=== PATIENT | male | born 1970 | race Caucasian/White ===

== ENCOUNTER 2021-12-20 23:27 | Emergency (ER) | payer MEDICAID ==
[~2021-12-20] VITALS: Ht 185.4 cm; Wt 77.5 kg
[2021-12-21 00:49] LABS: BASOPHILS # (AUTO) 0.1 X10'3 (0-0.2); BASOPHILS % (AUTO) 0.8 % (0-1); EOSINOPHILS # (AUTO) 0.2 X10'3 (0-0.9); HEMATOCRIT 37.2 % (42.0-52.0); HEMOGLOBIN 12.8 g/dl (14.0-17.9); LYMPHOCYTES # (AUTO) 2.5 X10'3 (1.1-4.8); LYMPHOCYTES % (AUTO) 31.6 % (21-51); MEAN CORPUSCULAR HEMOGLOBIN 29.2 PG (27.0-31.0); MEAN CORPUSCULAR HGB CONC 34.5 g/dL (33.0-36.5); MEAN CORPUSCULAR VOLUME 84.6 FL (78-98); MEAN PLATELET VOLUME 6.8 FL (7.4-10.4); MONOCYTES # (AUTO) 0.6 X10'3 (0-0.9); MONOCYTES % (AUTO) 8.2 % (2-12); NEUTROPHILS # (AUTO) 4.4 X10'3 (1.8-7.7); NEUTROPHILS % (AUTO) 56.4 % (42-75); PLATELET COUNT 395 X10'3 (140-440); RED CELL DISTRIBUTION WIDTH 13.2 % (11.5-14.5); WHITE BLOOD COUNT 7.8 X10'3 (4.5-11.0)
[2021-12-21 01:01] LABS: ALANINE AMINOTRANSFERASE 25 U/L (12-78); ALBUMIN 3.4 G/DL (3.4-5.0); ALBUMIN/GLOBULIN RATIO 0.8 (1.1-1.5); ALKALINE PHOSPHATASE 90 IU/L (46-116); ANION GAP 5 (8-16); ASPARTATE AMINO TRANSFERASE 15 U/L (10-37); BILIRUBIN,TOTAL 0.2 MG/DL (0.1-1.0); BLOOD UREA NITROGEN 16 MG/DL (7-18); BUN/CREATININE RATIO 14.8 (5.4-32.0); CALCIUM 9.4 MG/DL (8.5-10.1); CHLORIDE 104 MMOL/L (99-107); CREATININE 1.08 MG/DL (0.60-1.10); GLUCOSE 87 MG/DL (70-104); POTASSIUM 4.3 MMOL/L (3.5-5.1); SODIUM 143 MMOL/L (135-145); TOTAL CARBON DIOXIDE 33.6 MMOL/L (24-32); TOTAL PROTEIN 7.8 G/DL (6.4-8.2); eGFR 73 ML/MIN
[2021-12-21] MEDS ORDERED: sulfamethoxazole/trimethoprim DS (800/160mg) tablet PO ONE (03:20)
[2021-12-21] MEDS ORDERED: normal saline 1000ML IV soln IVB ONE (03:20)
[2021-12-21] MEDS ORDERED: ketorolac trometh. 30mg/ml inj. IV ONE (03:20)
[2021-12-21] MEDS ORDERED: NO HOME MEDS (03:20)
[2021-12-21] MEDS ORDERED: SULF1TAB45 PO (03:25)
[2021-12-21] MEDS ORDERED: CEPH-585 PO (03:25)
[2021-12-21] MEDS ORDERED: ampicillin/sulbac 3gm/NS 100ml 100 ML IV ONE (03:40)
[2021-12-21 04:55] VITALS: BP 136/85
[2021-12-21] MEDS ORDERED: ampicillin/sulbac 3gm/NS 100ml 100 ML IV SCH (08:00)
== END 2021-12-21 04:56 | disposition home or self-care (01) ==
LOC: ER 23:28
DX: L03.115 Cellulitis of right lower limb (principal); F15.10 Other stimulant abuse, uncomplicated; Z91.018 Allergy to other foods; Z79.899 Other long term (current) drug therapy; Z79.2 Long term (current) use of antibiotics
CPT/HCPCS: 73564; 80053; 84145; 85025; 96361; 96365; 96375; 99284; J0295; J1885; J7030; A6258

== ENCOUNTER 2023-03-20 21:43 | Emergency (ER) | payer OTHER, MEDICAID ==
[~2023-03-20] VITALS: Ht 182.9 cm; Wt 81.8 kg
[~2023-03-20 21:43] MED LIST: NO HOME MEDS
[2023-03-20 21:55] VITALS: BP 151/97; PULSE 74; RESP 16; O2SAT 98
[2023-03-20] MEDS ORDERED: IBUP-1984 PO (23:01)
[2023-03-20] MEDS ORDERED: CYCL-1 PO (23:01)
[2023-03-20 23:51] VITALS: TEMP 98.3
== END 2023-03-20 23:53 | disposition home or self-care (01) ==
LOC: ER 21:44
DX: M25.512 Pain in left shoulder (principal); F15.10 Other stimulant abuse, uncomplicated; V87.7XXA Person injured in collision between other specified motor vehicles (traffic), initial encounter; Y93.89 Activity, other specified; Y92.89 Other specified places as the place of occurrence of the external cause; Y99.8 Other external cause status
CPT/HCPCS: 73030; 99283

== ENCOUNTER 2023-05-03 08:02 | Emergency (ER) | payer MEDICAID ==
[~2023-05-03] VITALS: Ht 185.4 cm; Wt 78.2 kg
[~2023-05-03 08:02] MED LIST changes: +CYCL-1 PO
[2023-05-03 08:14] VITALS: BP 162/96; PULSE 95; RESP 18; TEMP 98.1; O2SAT 98
== END 2023-05-03 14:06 | disposition left against medical advice (07) ==
LOC: ER 08:02
DX: K08.89 Other specified disorders of teeth and supporting structures (principal); Z53.21 Procedure and treatment not carried out due to patient leaving prior to being seen by health care provider
CPT/HCPCS: 99281